=== PATIENT | male | born 1995 | race Caucasian/White ===

== ENCOUNTER → 2018-08-31 | Outpatient (CLI) | payer OTHER ==
[~2018-08-31] MED LIST: IOPAMIDOL (ISOVUE 370) 75 ML BTL IV ONE
== END ==
LOC: FIMAGING 08:43
PROVIDERS: ATTEND Specialist
DX: N50.89 Other specified disorders of the male genital organs (principal)
CPT/HCPCS: Q9967

== ENCOUNTER → 2018-09-09 | Outpatient (CLI) | payer BC | LOC: FIMAGING 16:16 | PROVIDERS: ATTEND Specialist | DX: C62.12 Malignant neoplasm of descended left testis (principal) ==

== ENCOUNTER → 2018-12-20 | Outpatient (CLI) | payer BC | LOC: FIMAGING 08:36 | PROVIDERS: ATTEND Internal Medicine Hematology & Oncology | DX: Z12.89 Encounter for screening for malignant neoplasm of other sites (principal); C62.90 Malignant neoplasm of unspecified testis, unspecified whether descended or undescended ==

== ENCOUNTER → 2019-01-04 | Outpatient (CLI) | payer BC | LOC: FIMAGING 09:54 ==